=== PATIENT | female | born 1940 | race Caucasian/White ===

== ENCOUNTER 2019-11-14 15:30 | Observation (INO) | payer MEDICARE ==
[2019-11-14] MEDS ORDERED: Sodium Chloride 0.9% 10 ML Syringe FLUSH PRN (15:53)
[2019-11-14] MEDS ORDERED: Lactated Ringers 1,000 ML IV ONE (15:57)
[2019-11-14] MEDS ORDERED: Ondansetron 4 MG/2 ML SDV IVPUSH ONE (15:58)
[2019-11-14] MEDS ORDERED: Atropine/Diphenoxylate 0.025-2.5 MG Tab PO ONE (15:58)
[2019-11-14] MEDS ORDERED: Acetaminophen 325 MG Tab PO ONE (15:58)
--- NOTE | 2019-11-14 16:04 | EDM.PDOC ---
ED HPI GENERAL MEDICAL PROBLEM - General Chief Complaint: General Stated Complaint: VERTIGO,DIARRHEA Time Seen by Provider: 11/14/19 15:45 Source of Information: Reports: Patient, Family, Old Records History Limitations: Reports: No Limitations - History of Present Illness INITIAL COMMENTS - FREE TEXT/NARRATIVE: 79 yo female here with illness x 2 days. Has diarrhea and at least once today also fever. Took some ibuprofen earlier today. Seems somewhat confused today. Is unaware of fever. No urinary sx's. No LEON. No cough. No rash. No known exposures. Here with . Onset: Gradual Onset Date: 11/12/19 Duration: Day(s): (2+), Constant Location: Reports: Generalized Quality: Reports: Other (pain not reported) Severity: Moderate Improves with: Reports: None Worsens with: Reports: Other (time) Context: Reports: Other (See HPI) Associated Symptoms: Reports: Confusion (mild), Nausea/Vomiting. 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 Denies: Black Stool, Bloody Stool, Constipation, Distension, Flatus, Hematemesis, Hematochezia, Melena : Reports: No Symptoms Musculoskeletal: Reports: No Symptoms Skin: Reports: No Symptoms Neurological: Reports: No Symptoms Psychiatric: Reports: No Symptoms ED EXAM, GENERAL - Physical Exam Exam: See Below Exam Limited By: No Limitations General Appearance: Alert, WD/WN, No Apparent Distress Eye Exam: Bilateral Eye: Normal Inspection Ears: Normal External Exam, Normal Canal, Hearing Grossly Normal Ear Exam: Bilateral Ear: Auricle Normal, Canal Normal Nose: Normal Inspection, No Blood Throat/Mouth: Normal Lips, Normal Voice, No Airway Compromise, Other (dry oral mucosa) Head: Atraumatic, Normocephalic Neck: Normal Inspection Respiratory/Chest: No Respiratory Distress, Lungs Clear, Normal Breath Sounds, No Accessory Muscle Use Cardiovascular: Regular Rate, Rhythm, No Edema, Tachycardia GI/Abdominal: Normal Bowel Sounds, Soft, Non-Tender, No Distention. No: Distended Extremities: Normal Inspection, Normal Range of Motion, Non-Tender, No Pedal Edema Neurological: Alert, CN II-XII Intact, No Motor/Sensory Deficits, Confused ( mildly) Psychiatric: Normal Affect, Normal Mood Skin Exam: Warm, Dry, Intact, Normal Color, No Rash Course - Vital Signs Text/Narrative:: Dr. Gonzales aware at 1729h Last Recorded V/S: Last Vital Signs Temp 38.8 C H 11/14/19 17:11 Pulse 76 11/14/19 17:11 Resp 20 11/14/19 17:11 BP 140/68 11/14/19 17:11 Pulse Ox 93 L 11/14/19 17:11 - Orders/Labs/Meds Orders: Active Orders 24 hr Category Date Time Status CORONAVIRUS COVID-19, [place] Stat Lab 11/14/19 17:26 Ordered CULTURE BLOOD [BC] Stat Lab 11/14/19 16:12 Received CULTURE BLOOD [BC] Stat Lab 11/14/19 16:55 Received Lactated Ringers @ 150 MLS/HR(1,000ml) Med 11/14/19 17:30 Ordered Lactated Ringers [Ringers, Lactated] 1,000 ml IV ASDIRECTED Sodium Chloride 0.9% [Saline Flush] Med 11/14/19 15:53 Active 10 ml FLUSH ASDIRECTED PRN Saline Lock Insert [OM.PC] Routine Oth 11/14/19 15:53 Ordered Medication Orders Sodium Chloride (Saline Flush) 10 ml FLUSH ASDIRECTED PRN PRN Reason: Keep Vein Open Labs: Laboratory Tests 11/14/19 11/14/19 11/14/19 Range/Units 16:12 16:12 16:12 WBC 3.3 L (4.5-11.0) K/uL RBC 4.46 (3.30-5.50) M/uL Hgb 13.1 (12.0-15.0) g/dL Hct 40.7 (36.0-48.0) % MCV 91 (80-98) fL MCH 29 (27-31) pg MCHC 32 (32-36) % Plt Count 106 L (150-400) K/uL Sodium 136 L (140-148) mmol/L Potassium 4.0 (3.6-5.2) mmol/L Chloride 99 L (100-108) mmol/L Carbon Dioxide 26 (21-32) mmol/L Anion Gap 15.0 H (5.0-14.0) mmol/L BUN 23 H (7-18) mg/dL Creatinine 1.1 H (0.6-1.0) mg/dL Est Cr Clr Drug Dosing 32.32 mL/min Estimated GFR (MDRD) 48 L (>60) Glucose 124 H (74-106) mg/dL Lactic Acid 1.5 (0.4-2.0) mmol/L Calcium 8.5 (8.5-10.1) mg/dL Lactate Dehydrogenase (82-234) U/L C-Reactive Protein (0.0-0.3) mg/dL Urine Color (YELLOW) Urine Appearance (CLEAR) Urine pH (5.0-8.0) Ur Specific [place] (1.008-1.030) Urine Protein (NEGATIVE) mg/dL Urine Glucose (UA) (NEGATIVE) mg/dL Urine Ketones (NEGATIVE) mg/dL Urine Occult Blood (NEGATIVE) Urine Nitrite (NEGATIVE) Urine Bilirubin (NEGATIVE) Urine Urobilinogen (0.2-1.0) EU/dL Ur Leukocyte Esterase (NEGATIVE) Urine RBC (0-5) Urine WBC (0-5) Ur Epithelial Cells Urine Bacteria Urine Mucus 11/14/19 11/14/19 Range/Units 16:12 16:53 WBC (4.5-11.0) K/uL RBC (3.30-5.50) M/uL Hgb (12.0-15.0) g/dL Hct (36.0-48.0) % MCV (80-98) fL MCH (27-31) pg MCHC (32-36) % Plt Count (150-400) K/uL Sodium (140-148) mmol/L Potassium (3.6-5.2) mmol/L Chloride (100-108) mmol/L Carbon Dioxide (21-32) mmol/L Anion Gap (5.0-14.0) mmol/L BUN (7-18) mg/dL Creatinine (0.6-1.0) mg/dL Est Cr Clr Drug Dosing mL/min Estimated GFR (MDRD) (>60) Glucose (74-106) mg/dL Lactic Acid (0.4-2.0) mmol/L Calcium (8.5-10.1) mg/dL Lactate Dehydrogenase 449 H (82-234) U/L C-Reactive Protein 8.81 H (0.0-0.3) mg/dL Urine Color Yellow (YELLOW) Urine Appearance Clear (CLEAR) Urine pH 6.0 (5.0-8.0) Ur Specific [place] 1.025 (1.008-1.030) Urine Protein 100 H (NEGATIVE) mg/dL Urine Glucose (UA) Negative (NEGATIVE) mg/dL Urine Ketones 15 H (NEGATIVE) mg/dL Urine Occult Blood Trace-intact H (NEGATIVE) Urine Nitrite Negative (NEGATIVE) Urine Bilirubin Negative (NEGATIVE) Urine Urobilinogen 0.2 (0.2-1.0) EU/dL Ur Leukocyte Esterase Negative (NEGATIVE) Urine RBC 0-5 (0-5) Urine WBC Not seen (0-5) Ur Epithelial Cells Not seen Urine Bacteria Not seen Urine Mucus Few Meds: Medications Generic Name Dose Route Start Last Admin Trade Name Freq PRN Reason Stop Dose Admin Sodium Chloride 10 ml 11/14/19 15:53 Saline Flush FLUSH ASDIRECTED PRN Keep Vein Open Discontinued Medications Generic Name Dose Route Start Last Admin Trade Name Freq PRN Reason Stop Dose Admin Acetaminophen 650 mg 11/14/19 15:58 11/14/19 16:14 Tylenol PO 11/14/19 15:59 650 mg NOW ONE Administration Diphenoxylate HCl/Atropine 1 tab 11/14/19 15:58 11/14/19 16:14 Lomotil 0.025-2.5 Mg PO 11/14/19 15:59 1 tab ONETIME ONE Administration Lactated Ringer's 1,000 mls @ 1,000 mls/hr 11/14/19 15:57 11/14/19 16:10 Ringers, Lactated IV 11/14/19 16:56 1,000 mls/hr BOLUS ONE Administration Ondansetron HCl 4 mg 11/14/19 15:58 11/14/19 16:14 Zofran IVPUSH 11/14/19 15:59 4 mg ONETIME ONE Administration - Re-Assessments/Exams Free Text/Narrative Re-Assessment/Exam: 11/14/19 17:27 Clearly better after tx in the ER, but not acting normal. Not able to ambulate. Departure - Departure Time of Disposition: 17:35 Disposition: Refer to Observation Condition: Fair Clinical Impression: Viral syndrome, Mild dehydration - Discharge Information *PRESCRIPTION DRUG MONITORING PROGRAM REVIEWED*: Not Applicable *COPY OF PRESCRIPTION DRUG MONITORING REPORT IN PATIENT DONOVAN: Not Applicable Referrals: PCP,None [Primary Care Provider] - Forms: ED Department Discharge Sepsis Event Note - Evaluation Sepsis Screening Result: Possible Sepsis Risk - Focused Exam Vital Signs: Vital Signs Temp Temp Pulse Resp BP Pulse Ox 11/14/19 17:11 38.8 C H 76 20 140/68 93 L 11/14/19 16:14 101.3 C H 11/14/19 15:55 38.6 C H 110 H 15 134/62 96 11/14/19 15:50 38.6 C H 110 H 15 134/62 96 Date Exam was Performed: 11/14/19 Time Exam was Performed: 17:27 - My Orders Last 24 Hours: My Active Orders 11/14/19 15:53 Sodium Chloride 0.9% [Saline Flush] 10 ml FLUSH ASDIRECTED PRN Saline Lock Insert [OM.PC] Routine 11/14/19 16:12 CULTURE BLOOD [BC] Stat 11/14/19 16:55 CULTURE BLOOD [BC] Stat 11/14/19 17:26 CORONAVIRUS COVID-19, [place] Stat 11/14/19 17:30 Lactated Ringers @ 150 MLS/HR(1,000ml) Lactated Ringers [Ringers, Lactated] 1, 000 ml IV ASDIRECTED - Assessment/Plan Last 24 Hours: My Active Orders 11/14/19 15:53 Sodium Chloride 0.9% [Saline Flush] 10 ml FLUSH ASDIRECTED PRN Saline Lock Insert [OM.PC] Routine 11/14/19 16:12 CULTURE BLOOD [BC] Stat 11/14/19 16:55 CULTURE BLOOD [BC] Stat 11/14/19 17:26 CORONAVIRUS COVID-19, AL Stat 11/14/19 17:30 Lactated Ringers @ 150 MLS/HR(1,000ml) Lactated Ringers [Ringers, Lactated] 1, 000 ml IV ASDIRECTED
[2019-11-14] MEDS ORDERED: Lactated Ringers 1,000 ML IV SCH (17:30)
--- NOTE | 2019-11-14 17:54 | PCM.HP.2 ---
H&P History of Present Illness - General Date of Service: 11/14/19 Admit Problem/Dx: Admission Diagnosis/Problem Admission Diagnosis/Problem Human anaplasmosis Source of Information: Patient, Family, Provider History Limitations: Reports: Altered Mental Status - History of Present Illness Initial Comments - Free Text/Narative: CC: weak HPI: Esha presents to the emergency room today with 2 days of progressive weakness and increasing confusion. She is fairly confused at this time and history is not reliable. History is gathered from her as well as emergency room personnel. Her reports several episodes of diarrhea over the past couple of days. Appetite has not been very good. She has had increasing weakness as well as increasing confusion. She seems to be either hallucinating or having difficulty with words while pointing at the garbage can she is talking about a blanket. Other than the diarrhea her said she has been doing well. She has not seemed short of breath and has not complained of any pain. She has not vomited. Patient does not think she has been having any fevers. They are not aware of any sick contacts. She has been out gardening and has had several ticks noted on her body but none were stuck or engorged. Work-up in the emergency room revealed low white blood cells and low platelets. Her CRP is elevated. LDH is mildly elevated. Urine is clear. Tickborne illness with anaplasmosis being the most likely is suspected. Other viral illness and potentially COVID19 are in the consideration. COVID testing is pending. She will be admitted for hydration and initiation of antibiotics. 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 History - Family History Family Medical History: Unobtainable (Patient too confused) - Tobacco Use Smoking Status *Q: Never Smoker - Alcohol Use Alcohol Use History: No - Recreational Drug Use Recreational Drug Use: No H&P Review of Systems - Review of Systems: Review Of Systems: Unable To Obtain Reason Not Obtained: Patient too confused Exam - Exam Exam: See Below - Vital Signs Vital Signs: Last Vital Signs Temp 38.8 C H 11/14/19 17:11 Pulse 76 11/14/19 17:11 Resp 20 11/14/19 17:11 BP 140/68 11/14/19 17:11 Pulse Ox 93 L 11/14/19 17:11 Weight: 54.431 kg - Exam Quality Assessment: No: Supplemental Oxygen General: Alert, Cooperative. No: Oriented, Mild Distress HEENT: Conjunctiva Clear. No: Mucosa Moist & [place] (dry), Scleral Icterus Neck: Supple, Trachea Midline. No: Lymphadenopathy Lungs: Clear to Auscultation, Normal Respiratory Effort Cardiovascular: Regular Rate, Regular Rhythm, Systolic Murmur GI/Abdominal Exam: Normal Bowel Sounds, Soft, Non-Tender, No Distention Back Exam: Normal Inspection, Full Range of Motion Extremities: No Pedal Edema. No: Joint Swelling, Increased Warmth Skin: Warm, Dry. No: Rash Neuro Extensive - Mental Status: Alert, Nl Response to Commands. No: Oriented x3 Neuro Extensive - Motor, Sensory, Reflexes: No: Dysarthria, Abnormal Motor, Tremor Psychiatric: Alert, Normal Affect - Patient Data Lab Results Last 24 hrs: Laboratory Results - last 24 hr 11/14/19 11/14/19 11/14/19 Range/Units 16:12 16:12 16:12 WBC 3.3 L (4.5-11.0) K/uL RBC 4.46 (3.30-5.50) M/uL Hgb 13.1 (12.0-15.0) g/dL Hct 40.7 (36.0-48.0) % MCV 91 (80-98) fL MCH 29 (27-31) pg MCHC 32 (32-36) % Plt Count 106 L (150-400) K/uL Sodium 136 L (140-148) mmol/L Potassium 4.0 (3.6-5.2) mmol/L Chloride 99 L (100-108) mmol/L Carbon Dioxide 26 (21-32) mmol/L Anion Gap 15.0 H (5.0-14.0) mmol/L BUN 23 H (7-18) mg/dL Creatinine 1.1 H (0.6-1.0) mg/dL Est Cr Clr Drug Dosing 32.32 mL/min Estimated GFR (MDRD) 48 L (>60) Glucose 124 H (74-106) mg/dL Lactic Acid 1.5 (0.4-2.0) mmol/L Calcium 8.5 (8.5-10.1) mg/dL Lactate Dehydrogenase (82-234) U/L C-Reactive Protein (0.0-0.3) mg/dL Urine Color (YELLOW) Urine Appearance (CLEAR) Urine pH (5.0-8.0) Ur Specific [place] (1.008-1.030) Urine Protein (NEGATIVE) mg/dL Urine Glucose (UA) (NEGATIVE) mg/dL Urine Ketones (NEGATIVE) mg/dL Urine Occult Blood (NEGATIVE) Urine Nitrite (NEGATIVE) Urine Bilirubin (NEGATIVE) Urine Urobilinogen (0.2-1.0) EU/dL Ur Leukocyte Esterase (NEGATIVE) Urine RBC (0-5) Urine WBC (0-5) Ur Epithelial Cells Urine Bacteria Urine Mucus 11/14/19 11/14/19 Range/Units 16:12 16:53 WBC (4.5-11.0) K/uL RBC (3.30-5.50) M/uL Hgb (12.0-15.0) g/dL Hct (36.0-48.0) % MCV (80-98) fL MCH (27-31) pg MCHC (32-36) % Plt Count (150-400) K/uL Sodium (140-148) mmol/L Potassium (3.6-5.2) mmol/L Chloride (100-108) mmol/L Carbon Dioxide (21-32) mmol/L Anion Gap (5.0-14.0) mmol/L BUN (7-18) mg/dL Creatinine (0.6-1.0) mg/dL Est Cr Clr Drug Dosing mL/min Estimated GFR (MDRD) (>60) Glucose (74-106) mg/dL Lactic Acid (0.4-2.0) mmol/L Calcium (8.5-10.1) mg/dL Lactate Dehydrogenase 449 H (82-234) U/L C-Reactive Protein 8.81 H (0.0-0.3) mg/dL Urine Color Yellow (YELLOW) Urine Appearance Clear (CLEAR) Urine pH 6.0 (5.0-8.0) Ur Specific [place] 1.025 (1.008-1.030) Urine Protein 100 H (NEGATIVE) mg/dL Urine Glucose (UA) Negative (NEGATIVE) mg/dL Urine Ketones 15 H (NEGATIVE) mg/dL Urine Occult Blood Trace-intact H (NEGATIVE) Urine Nitrite Negative (NEGATIVE) Urine Bilirubin Negative (NEGATIVE) Urine Urobilinogen 0.2 (0.2-1.0) EU/dL Ur Leukocyte Esterase Negative (NEGATIVE) Urine RBC 0-5 (0-5) Urine WBC Not seen (0-5) Ur Epithelial Cells Not seen Urine Bacteria Not seen Urine Mucus Few Result Diagrams: 11/14/19 16:12 11/14/19 16:12 Sepsis Event Note - Evaluation Sepsis Screening Result: Possible Sepsis Risk - Focused Exam Vital Signs: Vital Signs Temp Temp Pulse Resp BP Pulse Ox 11/14/19 17:11 38.8 C H 76 20 140/68 93 L 11/14/19 16:14 101.3 C H 11/14/19 15:55 38.6 C H 110 H 15 134/62 96 11/14/19 15:50 38.6 C H 110 H 15 134/62 96 Date Exam was Performed: 11/14/19 Time Exam was Performed: 17:59 *Q Meaningful Use (ADM) - VTE Risk Assess *Q Each Risk Factor Represents 1 Point: None Total Score 1 Point Risk Factors: 0 Each Risk Factor Represents 2 Points: None Total Score 2 Point Risk Factors: 0 Each Risk Factor Represents 3 Points: Age 75 Years or Greater Total Score 3 Point Risk Factors: 3 Each Risk Factor Represents 5 Points: None Total Score 5 Point Risk Factors: 0 Venous Thromboembolism Risk Factor Score *Q: 3 - Problem List (1) Anaplasmosis SNOMED Code(s): 397505288 ICD Code: A77.49 - OTHER EHRLICHIOSIS Status: Suspected Current Visit: Yes Problem List Initiated/Reviewed/Updated: Yes Orders Last 24hrs: Active Orders 24 hr Category Date Time Status Patient Status Manage Transfer [TRANSFER] Routine ADT 11/14/19 17:48 Active CORONAVIRUS COVID-19, [place] Stat Lab 11/14/19 17:26 Ordered CULTURE BLOOD [BC] Stat Lab 11/14/19 16:12 Received CULTURE BLOOD [BC] Stat Lab 11/14/19 16:55 Received HEPATIC FUNCTION PANEL,HFP [CHEM] Urgent Lab 11/14/19 17:29 Ordered HUMAN GRANULOCYTIC YANET-HGE Routine Lab 11/15/19 05:11 Ordered LYME, TOTAL AB TEST/REFLEX Routine Lab 11/15/19 05:11 Ordered PROCALCITONIN [CHEM] Urgent Lab 11/14/19 16:12 Received Lactated Ringers [Ringers, Lactated] 1,000 ml Med 11/14/19 17:30 Active IV ASDIRECTED Sodium Chloride 0.9% [Saline Flush] Med 11/14/19 15:53 Active 10 ml FLUSH ASDIRECTED PRN Saline Lock Insert [OM.PC] Routine Oth 11/14/19 15:53 Ordered Resuscitation Status Routine Resus Stat 11/14/19 17:49 Ordered Medication Orders Lactated Ringer's (Ringers, Lactated) 1,000 mls @ 150 mls/hr IV ASDIRECTED IVANNA Sodium Chloride (Saline Flush) 10 ml FLUSH ASDIRECTED PRN PRN Reason: Keep Vein Open Assessment/Plan Comment:: ASSESSMENT AND PLAN - Fever, leukopenia, thrombocytopenia and confusion-suspect anaplasmosis but could be viral enteritis and less likely COVID19. She is improving with just IV fluids so far. Vitals are stable with no evidence for sepsis. She does have known tick exposures but no other exposures to folks with viral illnesses. I would anticipate the confusion will improve with hydration and antibiotic initiation. -Empiric antibiotics with doxycycline -Lab testing for Lyme and anaplasmosis antibodies in the morning -IV fluids overnight -Symptomatic management of nausea if present -Acetaminophen and ibuprofen for fever/pain -COVID19 testing Maintenance issues - - DVT prophylaxis -mechanical - GI prophylaxis -not indicated - Nutrition -regular - Arias catheter -not indicated CODE STATUS -full code Admission justification -patient will be referred observation status for hydration and antibiotic initiation as well as observation to ensure that her mental status normalizes Disposition -I would anticipate discharge home tomorrow Primary care physician - Balaji Gonzales M.D. - Mortality Measure Prognosis:: Good
[2019-11-14] MEDS ORDERED: Ondansetron 4 MG/2 ML SDV IV PRN (18:20)
[2019-11-14] MEDS ORDERED: Acetaminophen 325 MG Tab PO PRN (18:20)
[2019-11-14] MEDS ORDERED: Ibuprofen 600 MG Tab PO PRN (18:20)
[2019-11-14] MEDS ORDERED: Ondansetron 4 MG Tab.DIS PO PRN (18:20)
[2019-11-14] MEDS ORDERED: Sodium Chloride 0.9% 1,000 ML IV SCH (18:20)
[2019-11-14] MEDS ORDERED: LORazepam 2 MG/ML SDV IVPUSH PRN (18:20)
[2019-11-14] MEDS ORDERED: Doxycycline 100 MG in Sodium Chloride 0.9% 100 ML IV SCH (19:00)
[2019-11-14] MEDS: Lactobacillus Rhamnosus GG (Probiotic) Cap PO SCH (19:59)
[2019-11-14] MEDS ORDERED: Melatonin 3 MG Tab PO SCH (21:00)
[2019-11-15] MEDS ORDERED: Doxycycline 100 MG in Sodium Chloride 0.9% 100 ML IV SCH (08:00)
[2019-11-15] MEDS: Lactobacillus Rhamnosus GG (Probiotic) Cap PO SCH (08:04)
--- NOTE | 2019-11-15 13:14 | PCM.DCSUM1 ---
Discharge Summary - Hospital Course Brief History: Healthy 79-year-old female who presented with confusion, weakness and diarrhea. 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 PT Reason for Consult: Strengthening This query below is only for informational purposes and is not editable. Hospital Course: Esha presented to the emergency room with diarrhea, weakness and confusion.Work -up in the emergency room revealed fever, leukopenia, thrombocytopenia and mild elevation of AST. Most likely this was a tickborne illness. There is no evidence for urinary tract infection. With the fever and GI symptoms COVID19 was considered and she was tested for this. She did improve some with IV fluids in the emergency room but still was confused and weak. Doxycycline was initiated and she was admitted to the hospital for further hydration and management. Overnight there were no acute issues. Her mental status has improved significantly since the time of hospital admission. Temperature is normal today. Vital signs have been stable. She has been up and walking around and doing fairly well. We did send off blood work for anaplasmosis and Lyme antibodies but this is pending at the time of discharge. COVID19 testing is still pending but I strongly suspect this will be negative. She is stable and safe for discharge home at this time. She will need 20 additional days of antibiotic therapy with doxycycline. - Patient Instructions Diet: Regular Diet as Tolerated Activity: As Tolerated Showering/Bathing: May Shower Notify Provider of: Fever, Increased Pain Other/Special Instructions: 1. You were in the hospital for management of suspected anaplasmosis. Your condition has been improving with IV fluids and antibiotic therapy. I did send a blood sample to be tested to see if you have antibody evidence for anaplasmosis but this test will not be available for several days. I do recommend a course of treatment for anaplasmosis. This consists of doxycycline 100 mg twice daily with food for 20 days (40 doses). Your first dose outside of the hospital will be due tonight. This antibiotic can make your skin sensitive to the sun so you should cover any potentially exposed skin or use sunscreen when you are outside while taking the antibiotic. 2. You may continue to experience a fever for the next several days but each temperature elevation should be lower. You can combat the fever by using acetaminophen 650 mg every 4 hours as needed. - Discharge Plan *PRESCRIPTION DRUG MONITORING PROGRAM REVIEWED*: Not Applicable *COPY OF PRESCRIPTION DRUG MONITORING REPORT IN PATIENT DONOVAN: Not Applicable Prescriptions/Med Rec: Doxycycline Hyclate 100 mg PO BID #40 capsule Home Medications: Home Meds Ascorbic Acid [Vitamin C] 1 tab PO DAILY 11/14/19 [History] Cholecalciferol (Vitamin D3) [Vitamin D] 1 tab PO DAILY 11/14/19 [History] Doxycycline Hyclate 100 mg PO BID #40 capsule 11/15/19 [Rx] Oxygen Therapy Mode: Room Air Patient Handouts: Doxycycline tablets or capsules, Ehrlichiosis and Anaplasmosis Referrals: PCP,None [Primary Care Provider] - (Follow-up as needed if your symptoms do not continue to get better or if they get worse) - Discharge Summary/Plan Comment DC Time >30 min.: No - Patient Data Vitals - Most Recent: Last Vital Signs Temp 36.6 C 11/15/19 11:07 Pulse 82 11/15/19 11:19 Resp 16 11/15/19 11:07 BP 115/48 L 11/15/19 11:07 Pulse Ox 97 11/15/19 11:19 Weight - Most Recent: 54.431 kg I&O - Last 24 hours: Intake & Output 11/14/19 11/15/19 11/15/19 22:59 06:59 14:59 Intake Total 300 2489 Balance 300 2489 Lab Results - Last 24 hrs: Laboratory Results - last 24 hr 11/14/19 11/14/19 11/14/19 Range/Units 16:12 16:12 16:12 WBC 3.3 L (4.5-11.0) K/uL RBC 4.46 (3.30-5.50) M/uL Hgb 13.1 (12.0-15.0) g/dL Hct 40.7 (36.0-48.0) % MCV 91 (80-98) fL MCH 29 (27-31) pg MCHC 32 (32-36) % Plt Count 106 L (150-400) K/uL Neutrophils % (Manual) 57 (36-66) % Band Neutrophils % 28 H (5-11) % Lymphocytes % (Manual) 11 L (24-44) % Monocytes % (Manual) 4 (2-6) % Sodium 136 L (140-148) mmol/L Potassium 4.0 (3.6-5.2) mmol/L Chloride 99 L (100-108) mmol/L Carbon Dioxide 26 (21-32) mmol/L Anion Gap 15.0 H (5.0-14.0) mmol/L BUN 23 H (7-18) mg/dL Creatinine 1.1 H (0.6-1.0) mg/dL Est Cr Clr Drug Dosing 32.32 mL/min Estimated GFR (MDRD) 48 L (>60) Glucose 124 H (74-106) mg/dL Lactic Acid 1.5 (0.4-2.0) mmol/L Calcium 8.5 (8.5-10.1) mg/dL Total Bilirubin (0.2-1.0) mg/dL Direct Bilirubin (0.0-0.2) mg/dL Indirect Bilirubin AST (15-37) U/L ALT (12-78) U/L Alkaline Phosphatase (46-116) U/L Lactate Dehydrogenase (82-234) U/L C-Reactive Protein (0.0-0.3) mg/dL Total Protein (6.4-8.2) g/dL Albumin (3.4-5.0) g/dL Globulin (2.3-3.5) g/dL Albumin/Globulin Ratio (1.2-2.2) Procalcitonin ng/mL Urine Color (YELLOW) Urine Appearance (CLEAR) Urine pH (5.0-8.0) Ur Specific [place] (1.008-1.030) Urine Protein (NEGATIVE) mg/dL Urine Glucose (UA) (NEGATIVE) mg/dL Urine Ketones (NEGATIVE) mg/dL Urine Occult Blood (NEGATIVE) Urine Nitrite (NEGATIVE) Urine Bilirubin (NEGATIVE) Urine Urobilinogen (0.2-1.0) EU/dL Ur Leukocyte Esterase (NEGATIVE) Urine RBC (0-5) Urine WBC (0-5) Ur Epithelial Cells Urine Bacteria Urine Mucus 11/14/19 11/14/19 11/14/19 Range/Units 16:12 16:12 16:12 WBC (4.5-11.0) K/uL RBC (3.30-5.50) M/uL Hgb (12.0-15.0) g/dL Hct (36.0-48.0) % MCV (80-98) fL MCH (27-31) pg MCHC (32-36) % Plt Count (150-400) K/uL Neutrophils % (Manual) (36-66) % Band Neutrophils % (5-11) % Lymphocytes % (Manual) (24-44) % Monocytes % (Manual) (2-6) % Sodium (140-148) mmol/L Potassium (3.6-5.2) mmol/L Chloride (100-108) mmol/L Carbon Dioxide (21-32) mmol/L Anion Gap (5.0-14.0) mmol/L BUN (7-18) mg/dL Creatinine (0.6-1.0) mg/dL Est Cr Clr Drug Dosing mL/min Estimated GFR (MDRD) (>60) Glucose (74-106) mg/dL Lactic Acid (0.4-2.0) mmol/L Calcium (8.5-10.1) mg/dL Total Bilirubin 0.6 (0.2-1.0) mg/dL Direct Bilirubin 0.16 (0.0-0.2) mg/dL Indirect Bilirubin 0.44 AST 87 H (15-37) U/L ALT 56 (12-78) U/L Alkaline Phosphatase 81 (46-116) U/L Lactate Dehydrogenase 449 H (82-234) U/L C-Reactive Protein 8.81 H (0.0-0.3) mg/dL Total Protein 7.8 (6.4-8.2) g/dL Albumin 3.7 (3.4-5.0) g/dL Globulin 4.1 H (2.3-3.5) g/dL Albumin/Globulin Ratio 0.9 L (1.2-2.2) Procalcitonin 0.99 ng/mL Urine Color (YELLOW) Urine Appearance (CLEAR) Urine pH (5.0-8.0) Ur Specific [place] (1.008-1.030) Urine Protein (NEGATIVE) mg/dL Urine Glucose (UA) (NEGATIVE) mg/dL Urine Ketones (NEGATIVE) mg/dL Urine Occult Blood (NEGATIVE) Urine Nitrite (NEGATIVE) Urine Bilirubin (NEGATIVE) Urine Urobilinogen (0.2-1.0) EU/dL Ur Leukocyte Esterase (NEGATIVE) Urine RBC (0-5) Urine WBC (0-5) Ur Epithelial Cells Urine Bacteria Urine Mucus 11/14/19 11/15/19 11/15/19 Range/Units 16:53 05:43 05:43 WBC 2.3 L (4.5-11.0) K/uL RBC 3.67 (3.30-5.50) M/uL Hgb 10.9 L D (12.0-15.0) g/dL Hct 34.1 L (36.0-48.0) % MCV 93 (80-98) fL MCH 30 (27-31) pg MCHC 32 (32-36) % Plt Count 83 L (150-400) K/uL Neutrophils % (Manual) (36-66) % Band Neutrophils % (5-11) % Lymphocytes % (Manual) (24-44) % Monocytes % (Manual) (2-6) % Sodium 140 (140-148) mmol/L Potassium 3.7 (3.6-5.2) mmol/L Chloride 106 (100-108) mmol/L Carbon Dioxide 27 (21-32) mmol/L Anion Gap 7.4 (5.0-14.0) mmol/L BUN 23 H (7-18) mg/dL Creatinine 1.0 (0.6-1.0) mg/dL Est Cr Clr Drug Dosing 35.55 mL/min Estimated GFR (MDRD) 54 L (>60) Glucose 106 (74-106) mg/dL Lactic Acid (0.4-2.0) mmol/L Calcium 7.7 L (8.5-10.1) mg/dL Total Bilirubin (0.2-1.0) mg/dL Direct Bilirubin (0.0-0.2) mg/dL Indirect Bilirubin AST (15-37) U/L ALT (12-78) U/L Alkaline Phosphatase (46-116) U/L Lactate Dehydrogenase (82-234) U/L C-Reactive Protein (0.0-0.3) mg/dL Total Protein (6.4-8.2) g/dL Albumin (3.4-5.0) g/dL Globulin (2.3-3.5) g/dL Albumin/Globulin Ratio (1.2-2.2) Procalcitonin ng/mL Urine Color Yellow (YELLOW) Urine Appearance Clear (CLEAR) Urine pH 6.0 (5.0-8.0) Ur Specific [place] 1.025 (1.008-1.030) Urine Protein 100 H (NEGATIVE) mg/dL Urine Glucose (UA) Negative (NEGATIVE) mg/dL Urine Ketones 15 H (NEGATIVE) mg/dL Urine Occult Blood Trace-intact H (NEGATIVE) Urine Nitrite Negative (NEGATIVE) Urine Bilirubin Negative (NEGATIVE) Urine Urobilinogen 0.2 (0.2-1.0) EU/dL Ur Leukocyte Esterase Negative (NEGATIVE) Urine RBC 0-5 (0-5) Urine WBC Not seen (0-5) Ur Epithelial Cells Not seen Urine Bacteria Not seen Urine Mucus Few Med Orders - Current: Current Medications Acetaminophen (Tylenol) 650 mg PO Q4H PRN PRN Reason: Pain (Mild 1-3)/fever Sodium Chloride (Normal Saline) 1,000 mls @ 100 mls/hr IV ASDIRECTED [facility] Last Admin: 11/15/19 00:57 Dose: 100 mls/hr Doxycycline Hyclate 100 mg/ (Sodium Chloride) 100 mls @ 100 mls/hr IV Q12H [facility] Last Admin: 11/15/19 08:04 Dose: 100 mls/hr Ibuprofen (Motrin) 600 mg PO Q6H PRN PRN Reason: Pain/Fever Last Admin: 11/14/19 20:00 Dose: 600 mg Lactobacillus Rhamnosus (Culturelle) 1 cap PO BID [facility] Last Admin: 11/15/19 08:04 Dose: 1 cap Lorazepam (Ativan) 0.5 mg IVPUSH Q4H PRN PRN Reason: Nausea/Vomiting Melatonin (Melatonin) 9 mg PO BEDTIME [facility] Last Admin: 11/14/19 19:59 Dose: 9 mg Ondansetron HCl (Zofran Odt) 4 mg PO Q6H PRN PRN Reason: Nausea able to take PO Ondansetron HCl (Zofran) 4 mg IV Q6H PRN PRN Reason: Nausea/Vomiting Sodium Chloride (Saline Flush) 10 ml FLUSH ASDIRECTED PRN PRN Reason: Keep Vein Open Discontinued Medications Acetaminophen (Tylenol) 650 mg PO NOW ONE Stop: 11/14/19 15:59 Last Admin: 11/14/19 16:14 Dose: 650 mg Diphenoxylate HCl/Atropine (Lomotil 0.025-2.5 Mg) 1 tab PO ONETIME ONE Stop: 11/14/19 15:59 Last Admin: 11/14/19 16:14 Dose: 1 tab Lactated Ringer's (Ringers, Lactated) 1,000 mls @ 1,000 mls/hr IV BOLUS ONE Stop: 11/14/19 16:56 Last Admin: 11/14/19 16:10 Dose: 1,000 mls/hr Lactated Ringer's (Ringers, Lactated) 1,000 mls @ 150 mls/hr IV ASDIRECTED [facility] Last Admin: 11/14/19 17:54 Dose: 150 mls/hr Doxycycline Hyclate 100 mg/ (Sodium Chloride) 100 mls @ 100 mls/hr IV Q12H [facility] Last Admin: 11/14/19 18:48 Dose: 100 mls/hr Ondansetron HCl (Zofran) 4 mg IVPUSH ONETIME ONE Stop: 11/14/19 15:59 Last Admin: 11/14/19 16:14 Dose: 4 mg
[2019-11-18 12:13] LABS: LYME IGG/IGM AB <0.91 ISR (0.00-0.90)
[2019-11-18 13:13] LABS: HGE IGG TITER Negative (Neg:<1:64); HGE IGM TITER Negative (Neg:<1:20)
== END 2019-11-15 13:58 | disposition home or self-care (01) ==
LOC: JP.ED 15:30 → JP.MS 17:48
PROVIDERS: ADMIT Internal Medicine; ATTEND Internal Medicine
DX: R50.9 Fever, unspecified (principal); E86.0 Dehydration; D72.819 Decreased white blood cell count, unspecified; D69.6 Thrombocytopenia, unspecified; R94.5 Abnormal results of liver function studies; R53.1 Weakness; R41.0 Disorientation, unspecified; Z20.828 Contact with and (suspected) exposure to other viral communicable diseases; Z79.899 Other long term (current) drug therapy
CPT/HCPCS: 36415; 80048; 80076; 81001; 83605; 83615; 84145; 85025; 85027; 86140; 86618; 86666; 87040; 96361; 96365; 96366; 96375; 97112; 97161; 99284; A9270; G0378; J2405; J3490; J7030; J7050; J7120; U0002; 96374

== ENCOUNTER 2020-06-25 06:35 | Day surgery (SDC) | payer MEDICARE ==
[2020-06-25] MEDS ORDERED: Sodium Chloride 0.9% 10 ML Syringe FLUSH PRN (07:30)
--- NOTE | 2020-06-25 09:09 | OR ---
DATE OF PROCEDURE: 06/25/2020 SURGEON: Cinthia Johnson MD POSTOPERATIVE CARE: Postoperative care will be provided mainly at the [address] [place] [address] [facility] in conjunction with [facility]. PREOPERATIVE DIAGNOSIS: Cataract, right eye. POSTOPERATIVE DIAGNOSIS: Cataract, right eye. PROCEDURE: Phacoemulsification with intraocular lens placement, right eye. ANESTHESIA: Topical and intracameral. ESTIMATED BLOOD LOSS: Minimal. COMPLICATIONS: None. PATHOLOGY SPECIMENS: None. SURGICAL FINDINGS: None. INDICATION FOR PROCEDURE: The patient is a 79-year-old female with history of a visually significant cataract in the right eye, which interfered with activities of daily living. This consisted of a nuclear sclerosis cataract. Following careful discussion of the risks, benefits and alternatives to cataract extraction with intraocular lens placement including blindness and , the patient elected to proceed, and informed, written consent was obtained prior to the procedure. DESCRIPTION OF THE PROCEDURE: The patient was previously identified, and a magdalena placed above the right eye. All sources, including the patient, indicated that the right eye was the correct eye. The patient was subsequently taken to the operating room where standard monitors were applied. The patient was then prepped and draped in the usual sterile fashion for ophthalmic surgery. Attention was first directed at the 12 o'clock position where a paracentesis port was fashioned. Shugar solution followed by Viscoat was instilled into the eye. Attention was then directed to the 8:30 position where a triplanar incision was made in a near-clear manner using a keratome. A continuous capsulorrhexis was then made using a combination of the cystotome and Utrata forceps. Hydrodissection was achieved using a balanced salt solution, and the lens rotated nicely. Phacoemulsification was then done using a modified [id number] technique without complication. Phaco time was 17.40 CDE. The remaining cortex was removed using the irrigation/aspiration handpiece. Provisc was then instilled into the eye. A Technis lens, model PCB00 at 17.0 diopters was then placed in the capsular bag using an [place] injector. The remaining viscoelastic was removed using the irrigation/aspiration forceps. All wounds were then checked and found to be watertight. The lid speculum and drapes were removed. Maxitrol ointment was placed in the patient's right eye, and the eye was shielded. The patient tolerated the procedure well. The patient was instructed to follow up tomorrow. All needle and sponge counts were correct at the end of the procedure. There were no surgical findings. Cinthia Johnson MD /[id number]
== END 2020-06-25 08:30 | disposition home or self-care (01) ==
LOC: JP.SDS 06:35
PROVIDERS: ATTEND Ophthalmology
DX: H26.9 Unspecified cataract (principal)

== ENCOUNTER 2020-07-09 06:36 | Day surgery (SDC) | payer MEDICARE ==
[2020-07-09] MEDS ORDERED: Sodium Chloride 0.9% 10 ML Syringe FLUSH PRN (07:00)
--- NOTE | 2020-07-09 11:22 | OR ---
DATE OF PROCEDURE: 07/09/2020 SURGEON: Cinthia Johnson MD POSTOPERATIVE CARE: Postoperative care will be provided mainly at the [address] [place] [address] [facility] in conjunction with [facility]. PREOPERATIVE DIAGNOSIS: Cataract, left eye. POSTOPERATIVE DIAGNOSIS: Cataract, left eye. PROCEDURE: Phacoemulsification with intraocular lens placement, left eye. ANESTHESIA: Topical and intracameral. ESTIMATED BLOOD LOSS: Minimal. COMPLICATIONS: None. PATHOLOGY SPECIMENS: None. SURGICAL FINDINGS: None. INDICATION FOR PROCEDURE: The patient is a 79-year-old female with history of a visually significant cataract in the left eye, which interfered with activities of daily living. This consisted of a nuclear sclerosis cataract. Following careful discussion of the risks, benefits and alternatives to cataract extraction with intraocular lens placement including blindness and , the patient elected to proceed, and informed, written consent was obtained prior to the procedure. DESCRIPTION OF THE PROCEDURE: The patient was previously identified, and a magdalena placed above the left eye. All sources, including the patient, indicated that the left eye was the correct eye. The patient was subsequently taken to the operating room where standard monitors were applied. The patient was then prepped and draped in the usual sterile fashion for ophthalmic surgery. Attention was first directed at the 12 o'clock position where a paracentesis port was fashioned. Shugar solution followed by Viscoat was instilled into the eye. Attention was then directed to the 8:30 position where a triplanar incision was made in a near-clear manner using a keratome. A continuous capsulorrhexis was then made using a combination of the cystotome and Utrata forceps. Hydrodissection was achieved using a balanced salt solution, and the lens rotated nicely. Phacoemulsification was then done using a modified [id number] technique without complication. Phaco time was 17.64 CDE. The remaining cortex was removed using the irrigation/aspiration handpiece. Provisc was then instilled into the eye. A Technis lens, model DCB00, at 17.0 diopters was then placed in the capsular bag using an [place] injector. The remaining viscoelastic was removed using the irrigation/aspiration forceps. All wounds were then checked and found to be watertight. The lid speculum and drapes were removed. Maxitrol ointment was placed in the patient's left eye, and the eye was shielded. The patient tolerated the procedure well. The patient was instructed to follow up tomorrow. All needle and sponge counts were correct at the end of the procedure. There were no surgical findings. Cinthia Johnson MD /[id number]
== END 2020-07-09 08:15 | disposition home or self-care (01) ==
LOC: JP.SDS 06:36
PROVIDERS: ATTEND Ophthalmology
DX: H26.9 Unspecified cataract (principal)
CPT/HCPCS: 66984; V2632